=== PATIENT | female | born 1980 ===

== ENCOUNTER 2020-01-12 05:14 | Inpatient (IN) | payer OTHER ==
[~2020-01-12] VITALS: Ht 172.7 cm; Wt 3.2 kg
[2020-01-12] MEDS ORDERED: PRENATAL TABLE1 EAC1 PO (06:25)
[2020-01-12] MEDS ORDERED: PROCARDIA PO (06:27)
[2020-01-12] MEDS ORDERED: NIFEDIPINE20 MG PO (15:31)
[2020-01-12] MEDS ORDERED: ADALAT CC30 MG PO (15:32)
== END 2020-01-14 14:30 | disposition home or self-care (01) | DRG 788 ==
LOC: LDR 05:14 → SURG-SUITE 05:14 → O/R 14:26 → SURG-SUITE 15:41
PROVIDERS: ADMIT Specialist; ATTEND Specialist
PROC: 4A1HXFZ Monitoring of Products of Conception, Cardiac Rhythm, External Approach (ICD-10-PCS; 2020-01-12)
PROC: 3E033VJ Introduction of Other Hormone into Peripheral Vein, Percutaneous Approach (ICD-10-PCS; 2020-01-12)
PROC: 10D00Z1 Extraction of Products of Conception, Low, Open Approach (ICD-10-PCS; principal; 2020-01-12 14:00)
DX: O61.0 Failed medical induction of labor (principal); Z3A.39 39 weeks gestation of pregnancy; Z37.0 Single live birth; O65.4 Obstructed labor due to fetopelvic disproportion, unspecified; Z20.828 Contact with and (suspected) exposure to other viral communicable diseases